=== PATIENT | male | born 1990 | race Caucasian/White ===

== ENCOUNTER 2017-05-23 11:22 | Inpatient (IN) | payer OTHER, MEDICAID ==
--- NOTE | 2017-05-23 11:26 | EDPHY ---
H & P - Personal History Tetanus Vaccine Date: Within the last seven years - Medical/Surgical History Hx Asthma: No Hx Chronic Respiratory Disease: No Hx Diabetes: No Hx Cardiac Disease: No Hx Renal Disease: No Hx Cirrhosis: No Hx Alcoholism: No Hx HIV/AIDS: No Hx Splenectomy or Spleen Trauma: No Other PMH: schizophrenia, bipolar - Social History Smoking Status: Current every day smoker Time Seen by Provider: 05/23/17 11:26 Constitutional: Initial Vital Signs Temperature (C) 36.8 C 05/23/17 11:25 Heart Rate 41 L 05/23/17 11:25 Respiratory Rate 16 05/23/17 11:25 Blood Pressure 119/69 05/23/17 11:25 O2 Sat (%) 96 05/23/17 11:25 O2 Delivery Mode Room Air Allergies/Adverse Reactions: No Known Allergies Allergy (Verified 05/23/17 12:12) Home Medications: Medication Instructions Recorded NK [No Known Home Meds] 05/23/17 Medical Decision Making ED Course/Re-evaluation: CHIEF COMPLAINT: Psychiatric evaluation HISTORY OF PRESENT ILLNESS: 27-year-old male who was brought in by the floor supervisor' s department. According to the police he has been completely cooperative. He was picked up at his house. He apparently has a court order but it is unclear the nature of that. His roommates have been calling his parents in [place]. His parents are on the way here. According to the patient there is absolutely nothing wrong with him. He denies using any drugs. He is trying to stop smoking cigarettes. He does use alcohol. He has been reading and writing and feels fine. He apparently has a diagnosis of schizoaffective disorder. A court order was obtained via his roommates and parents to bring him here to [facility] to get a psychiatric evaluation. Patient at this point is denying all psychiatric illness. REVIEW OF SYSTEMS: A 10 point review of systems was performed and is negative with the exception of the elements mentioned in the history of present illness. PHYSICAL EXAM: General Appearance: Alert, well hydrated, appropriate, and non-toxic appearing. Head: Atraumatic without scalp tenderness or obvious injury Eyes: Pupils equal, round, reactive to light and accommodation, EOMI, no trauma , no injection. Ears: Clear bilaterally, no perforation, normal landmarks Nose: Atraumatic, no rhinorrhea, clear. Throat: There is no erythema or exudates, no lesions, normal tonsils, mucus membranes moist. Neck: Supple, 2+ carotid upstroke, nontender, no lymphadenopathy. Respiratory: No retractions, no distress, no wheezes, and no accessory muscle use. Lungs are clear to auscultation bilaterally. Cardiovascular: Regular rate and rhythm, no murmurs, rubs, or gallops. Bilateral carotid, radial, dorsalis pedis, and posterior tibial pulses intact. Good capillary refill all extremities. Gastrointestinal: Abdomen is soft, nontender, non-distended, no masses, no rebound, no guarding, no peritoneal signs. Musculoskeletal: Normal active ROM of all extremities, atraumatic. Neurological: Alert, appropriate, and interactive. The patient has normal DTRs and non-focal cranial nerves, motor, sensory, and cerebellar exam. Skin: No rashes, good turgor, no nodules on palpation. Past medical history: Schizoaffective Past surgical history: Noncontributory Family history: Noncontributory Social history: Single, unemployed, lives with roommates, uses tobacco, denies alcohol or drugs DIFFERENTIAL DIAGNOSIS: The differential diagnosis for the patient's depression included but was not limited to functional and major depression, situational depression, medication side effect, drugs, and alcohol abuse. MEDICAL DECISION MAKING: Patient is in no acute distress and is hemodynamically stable. We are awaiting psychiatric team's evaluation. Patient has known history of psychiatric disorders and is here for evaluation. (Osmani Carlson) The patient has been accepted at [address] [place] [address] Wor[address]. Transfer paperwork completed. (Dayron Dumas) - Data Points Laboratory Results: Laboratory Results 05/23/17 11:40 05/23/17 11:40 05/23/17 05/23/17 05/23/17 11:40 11:40 11:40 WBC 8.29 10^3/uL 10^3/uL (3.80-9.50) RBC 4.70 10^6/uL 10^6/uL (4.40-6.38) Hgb 14.7 g/dL g/dL (13.7-17.5) Hct 43.9 % % (40.0-51.0) MCV 93.4 fL fL (81.5-99.8) MCH 31.3 pg pg (27.9-34.1) MCHC 33.5 g/dL g/dL (32.4-36.7) RDW 12.4 % % (11.5-15.2) Plt Count 260 10^3/uL 10^3/uL (150-400) MPV 10.4 fL fL (8.7-11.7) Neut % (Auto) 70.8 % % (39.3-74.2) Lymph % (Auto) 21.4 % % (15.0-45.0) [place] % (Auto) 6.2 % % (4.5-13.0) Eos % (Auto) 0.6 % % (0.6-7.6) Baso % (Auto) 0.6 % % (0.3-1.7) Nucleat RBC Rel Count 0.0 % % (0.0-0.2) Absolute Neuts (auto) 5.88 10^3/uL 10^3/uL (1.70-6.50) Absolute Lymphs (auto) 1.77 10^3/uL 10^3/uL (1.00-3.00) Absolute Monos (auto) 0.51 10^3/uL 10^3/uL (0.30-0.80) Absolute Eos (auto) 0.05 10^3/uL 10^3/uL (0.03-0.40) Absolute Basos (auto) 0.05 10^3/uL 10^3/uL (0.02-0.10) Absolute Nucleated RBC 0.00 10^3/uL 10^3/uL (0-0.01) Immature Gran % 0.4 % % (0.0-1.1) Immature Gran # 0.03 10^3/uL 10^3/uL (0.00-0.10) Sodium 140 mEq/L mEq/L (135-145) Potassium 4.5 mEq/L mEq/L (3.5-5.2) Chloride 107 mEq/L mEq/L (97-110) Carbon Dioxide 18 mEq/l L mEq/l (22-31) Anion Gap 15 mEq/L mEq/L (8-16) BUN 15 mg/dL mg/dL (7-23) Creatinine 0.9 mg/dL mg/dL (0.7-1.3) Estimated GFR > 60 Glucose 92 mg/dL mg/dL (70-100) Calcium 10.1 mg/dL mg/dL (8.5-10.4) Urine Opiates Screen NEGATIVE (NEGATIVE) Urine Barbiturates NEGATIVE (NEGATIVE) Ur Phencyclidine Scrn NEGATIVE (NEGATIVE) Ur Amphetamine Screen NEGATIVE (NEGATIVE) U Benzodiazepines Scrn NEGATIVE (NEGATIVE) Urine Cocaine Screen NEGATIVE (NEGATIVE) U Marijuana (THC) Screen NON-NEGATIVE H (NEGATIVE) Ethyl Alcohol < 10 mg/dL mg/dL (0-10) Departure - Departure Disposition: [facility] IP Clinical Impression: Schizophrenia Condition: Fair
[2017-05-23 12:29] LABS: PLATELET COUNT 260 10^3/uL (150-400)
[2017-05-23] MEDS ORDERED: NICOTINE POLACRILEX 2 MG GUM B PRN (23:28)
[2017-05-23] MEDS ORDERED: MAGNESIUM HYDROXIDE 30 ML UDCUP PO PRN (23:28)
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
--- NOTE | 2017-05-24 18:04 | BCON ---
[f rep st] BEHAVIORAL HEALTH CONSULTATION INTERNAL MEDICINE CONSULTATION DATE OF CONSULTATION: 05/24/2017 REFERRING PHYSICIAN: Margarito Worrell MD REASON FOR REFERRAL: Medical clearance for inpatient behavioral health stay. HISTORY OF PRESENT ILLNESS: This patient was brought to the emergency department on a court-ordered stay due to erratic behavior at home, where he lives with roommates. He reports that there is nothing wrong with him and he has no complaints. PAST MEDICAL HISTORY: 1. Bipolar disorder versus schizophrenia versus schizoaffective disorder. 2. History of concussions. PAST SURGICAL HISTORY: He has not had any surgeries. MEDICATIONS: He was taking no medications. ALLERGIES: There are no known drug allergies. REVIEW OF SYSTEMS: He denies pain, chest pain, palpitations, dyspnea, cough, nausea, vomiting, constipation, diarrhea. Otherwise, a 10-point review of systems is negative. PHYSICAL EXAM: VITAL SIGNS: Blood pressure is 118/58, heart rate is 40, respiratory rate is 14, oxygen saturation is 96% on room air. Temperature is 36.5 degrees centigrade. His weight is 74.8 kg for a body mass index of 23.7. GENERAL: This is a well-nourished, well-developed, and well-groomed man, cooperative and in no acute distress. HEENT: Extraocular movements are intact. Pupils are equal, round, and reactive to light. Mucous membranes are moist. Dentition is in good condition. He has an uncrowded airway, Mallampati class 1. NECK: Supple. HEART: There is a regular rate and rhythm. He is bradycardic. There are no murmurs, rubs, or gallops. LUNGS: Clear to auscultation bilaterally. ABDOMEN: Benign. EXTREMITIES: There is no cyanosis , clubbing, or edema. NEUROLOGIC: He is alert and oriented x3. Cranial nerves 2-12 are grossly intact. There is no focal weakness. Sensation is intact to light touch. Gait is within normal limits. LABORATORY STUDIES: Drawn in the emergency department, CBC was entirely within normal limits. Serum chemistry showed a slightly low carbon dioxide at 18, otherwise, renal function and electrolytes were normal. Toxicology screen in the serum was negative for ethyl alcohol. Urine was non-negative for marijuana but otherwise negative for substances of abuse. ASSESSMENT/RECOMMENDATIONS: 1. Mental health issues, pending further evaluation and management per Psychiatry and the mental health team. 2. Bradycardia of unknown etiology. I will add on a TSH. Upon chart review, bradycardia was present in 2012 when an EKG was done which showed sinus bradycardia and no abnormalities. There was also an echocardiogram done which also was read as normal but for slight tricuspid regurgitation. Given that this has been longstanding and he is asymptomatic at present, there is no further evaluation indicated. I see no medical contraindications to this patient's continued stay on the inpatient behavioral health unit or to any psychiatric medications or procedures. Thank you very much for including me in the care of this patient. Please do not hesitate to contact me or the hospitalist service should there be need for further medical evaluation. /[id number]/MODL MTDD
[2017-05-24] MEDS: OLANZapine DISINTEGR 10 MG TAB PO SCH (23:02)
--- NOTE | 2017-05-25 13:44 | SOAPPROG ---
SOAP Progress Note Assessment/Plan: Assessment: Plan: Subjective: Pt seen, discussed with staff. He voluntarily met with me today to discuss my impression and recommendations. I emphasized to him that I believe he is suffering from Schizoaffective D/o and requires medication treatment. He states he will not accept medication "because that is the last option, not the first." Talks about "natural remedies" and states, "I don't want you messing with my biochemistry." I explained that I believed his biochemistry needs to be adjusted through the use of medications to allow him to return to his normal level of functioning. I offered my observation that he has declined in every area of functioning since stopping his meds. He has alienated all of his supports, placing people in fear of harm, has lost virtually all of his belongings, is unemployed, is homeless, and has repeatedly demonstrated that he cannot care for his basic needs such as eating. He refutes this completely stating, "You are just very old and cannot understand this generation. You only see things in a box." Objective: Vital Signs Temp Pulse Resp BP Pulse Ox 36.6 C 47 L 15 93/51 L 95 05/25/17 06:00 05/25/17 06:00 05/25/17 06:00 05/25/17 06:00 05/25/17 06:00 MSE: Moderately anxious, cooperative. He actively attempts to reason with me, offering numerous alternative points of view re: his illness. He struggles to remain linear, derailing at times, but is able to bring himself back to topic. He continues to demonstrate paranoid thinking, believing his friends and parents are acting against him and lying on their affidavits to the court. He denies ever hearing any voices. He refuses to accept the existence of mental illness in himself and demonstrates an absence of insight in this area. His judgement remains severely impaired. - Time Spent With Patient Time Spent With Patient: 25" ICD10 Worksheet Patient Problems: Problems Problem Status Onset Schizophrenia Acute
--- NOTE | 2017-05-25 18:45 | SOAPPROG ---
SOAP Progress Note Assessment/Plan: Assessment: Mildly suppressed TSH. Presentation not otherwise consistent with thyrotoxicosis. Advise follow-up TSH in 4-6 weeks. 05/25/17 18:44 Subjective: Labs reviewed. Objective: Vital Signs Temp Pulse Resp BP Pulse Ox 36.6 C 47 L 15 93/51 L 95 05/25/17 06:00 05/25/17 06:00 05/25/17 06:00 05/25/17 06:00 05/25/17 06:00 ICD10 Worksheet Patient Problems: Problems Problem Status Onset Schizophrenia Acute
[2017-05-25] MEDS: OLANZapine DISINTEGR 10 MG TAB PO SCH (20:17)
--- NOTE | 2017-05-26 16:43 | SOAPPROG ---
SOAP Progress Note Assessment/Plan: Assessment: Per Dr. Worrell's note: Pt seen, discussed with staff. He voluntarily met with me today to discuss my impression and recommendations. I emphasized to him that I believe he is suffering from Schizoaffective D/o and requires medication treatment. He states he will not accept medication "because that is the last option, not the first." Talks about "natural remedies" and states, "I don't want you messing with my biochemistry." I explained that I believed his biochemistry needs to be adjusted through the use of medications to allow him to return to his normal level of functioning. I offered my observation that he has declined in every area of functioning since stopping his meds. He has alienated all of his supports, placing people in fear of harm, has lost virtually all of his belongings, is unemployed, is homeless, and has repeatedly demonstrated that he cannot care for his basic needs such as eating. He refutes this completely stating, "You are just very old and cannot understand this generation. You only see things in a box." Plan: 05/26/17 16:39 1. CCM - patient still refusing to take any psych meds, doesn't believe he "needs that stuff." 2. Patient extremely labile and disorganized today. Crying inconsolably around noon while sitting by himself in dining room. Seen laughing to himself and apparently responding to IS. 3. POC came for visit and requested to sit with patient in his room, but patient said he didn't want them to stay. Still paranoid that they are "telling lies" about him. 4. Placed on STC by Dr. Worrell. 5. A[address] court date for involuntary meds. 6. Placed on ISB precautions d/t sexually inappropriate comments he made to female staff. Subjective: Met with patient, reviewed chart and d/w staff. Patient has been pacing the halls, smiling inappropriately, mumbling to himself. He is also extremely labile , one minute crying loudly while sitting by himself in dining room, the next minute pacing halls laughing at nothing in particular and smiling when MD passes him. Patient said he had a list of questions to ask MD, but when MD asked to sit and talk, patient kept walking and said, "not now." Staff report patient slept 5-1/2 hours last night which is increase from previous night. Objective: Vital Signs Temp Pulse Resp BP Pulse Ox 36.3 C 58 L 14 107/68 97 05/26/17 00:30 05/26/17 00:30 05/26/17 00:30 05/26/17 00:30 05/26/17 00:30 MSE: Affect: Labile Mood: "Fine" TP: Disorganized, starts and stops conversation in mid-thought TC: Clear evidence of RIS Insight/Judgment: Impaired - Time Spent With Patient Time Spent With Patient: 15" - Pending Discharge Pending Discharge Within 24 Hours: No Pending Discharge Within 48 Hours: No ICD10 Worksheet Patient Problems: Problems Problem Status Onset Schizophrenia Acute
[2017-05-26] MEDS: OLANZapine DISINTEGR 10 MG TAB PO SCH (19:31)
--- NOTE | 2017-05-27 14:08 | SOAPPROG ---
SOAP Progress Note Assessment/Plan: Assessment: Plan: 05/27/17 14:08 Bipolar D/o: Remains very ill. Will continue to offer Zyprexa, though would be OK with either Risperdal or Invega if pt preferred. Await hearing for COM. Subjective: Pt seen, discussed with staff. Sitting in room with parents. States he "can't decide" if he wants to visit with me or not. I informed him that I had filed the STC and request for COM. He became tearful at that. He could not explain why. He then stated that "Invega and Risperdal are better." Stopped short of consenting to take one of the meds, however. I reviewed with him the criteria to have the STC released inc: improvement in his psychosis and ruddy to the extent that he demonstrates reasonable decision making. Objective: Vital Signs Temp Pulse Resp BP Pulse Ox 36.4 C 38 L 14 108/58 L 97 05/27/17 05:28 05/27/17 05:28 05/27/17 05:28 05/27/17 05:28 05/27/17 05:28 MSE: Anxious appearing with constricted, anxious and tearful affect, constricted body posture. TP is disorganized, unable to make simple decisions or give goal-directed answers to questions. - Time Spent With Patient Time Spent With Patient: 25" ICD10 Worksheet Patient Problems: Problems Problem Status Onset Schizophrenia Acute
[2017-05-27] MEDS: OLANZapine DISINTEGR 10 MG TAB PO SCH (21:00)
--- NOTE | 2017-05-28 13:17 | SOAPPROG ---
SOAP Progress Note Assessment/Plan: Assessment: Per Dr. Worrell's note: Pt seen, discussed with staff. He voluntarily met with me today to discuss my impression and recommendations. I emphasized to him that I believe he is suffering from Schizoaffective D/o and requires medication treatment. He states he will not accept medication "because that is the last option, not the first." Talks about "natural remedies" and states, "I don't want you messing with my biochemistry." I explained that I believed his biochemistry needs to be adjusted through the use of medications to allow him to return to his normal level of functioning. I offered my observation that he has declined in every area of functioning since stopping his meds. He has alienated all of his supports, placing people in fear of harm, has lost virtually all of his belongings, is unemployed, is homeless, and has repeatedly demonstrated that he cannot care for his basic needs such as eating. He refutes this completely stating, "You are just very old and cannot understand this generation. You only see things in a box." Plan: 05/26/17 16:39 1. CCM - patient still refusing to take any psych meds, doesn't believe he "needs that stuff." 2. Patient extremely labile and disorganized today. Crying inconsolably around noon while sitting by himself in dining room. Seen laughing to himself and apparently responding to IS. 3. POC came for visit and requested to sit with patient in his room, but patient said he didn't want them to stay. Still paranoid that they are "telling lies" about him. 4. Placed on STC by Dr. Worrell. 5. A[address] date for involuntary meds. 6. Placed on ISB precautions d/t sexually inappropriate comments he made to female staff. 05/28/17 13:14 1. CCM - patient presents more disorganized and labile than earlier in week, however, refuses to take any psych meds 2. STC 3. A[address] hearing for involuntary meds Subjective: Met with patient, reviewed chart and d/w staff. Patient presents very disorganized and labile. He was overheard by staff crying loudly in his room, and then a brief time later was dancing in the hallway. When tried to talk to patient he kept walking away and mumbling under his breath. Later he came up to MD and showed him his [facility] paperwork and his dental resident's card, and asked MD "do you want to see this." MD asked if patient would sit down and talk, but he turned away quickly and began walking in the other direction, saying,"I'm going away." Patient slept 7 hours. Objective: Vital Signs Temp Pulse Resp BP Pulse Ox 36.4 C 53 L 16 88/52 L 97 05/28/17 06:00 05/28/17 06:00 05/28/17 06:00 05/28/17 06:00 05/28/17 06:00 MSE: Affect: Elevated, labile Mood: No response TP: Disorganized, illogical TC : Appears to respond to internal/external stim, laughing inappropriately, seems paranoid to try meds Insight/Judgment: Impaired - Time Spent With Patient Time Spent With Patient: 15" - Pending Discharge Pending Discharge Within 24 Hours: No Pending Discharge Within 48 Hours: No ICD10 Worksheet Patient Problems: Problems Problem Status Onset Schizophrenia Acute
[2017-05-28] MEDS: OLANZapine DISINTEGR 10 MG TAB PO SCH (19:07)
--- NOTE | 2017-05-29 15:18 | SOAPPROG ---
SOAP Progress Note Assessment/Plan: Assessment: Per Dr. Worrell's note: Pt seen, discussed with staff. He voluntarily met with me today to discuss my impression and recommendations. I emphasized to him that I believe he is suffering from Schizoaffective D/o and requires medication treatment. He states he will not accept medication "because that is the last option, not the first." Talks about "natural remedies" and states, "I don't want you messing with my biochemistry." I explained that I believed his biochemistry needs to be adjusted through the use of medications to allow him to return to his normal level of functioning. I offered my observation that he has declined in every area of functioning since stopping his meds. He has alienated all of his supports, placing people in fear of harm, has lost virtually all of his belongings, is unemployed, is homeless, and has repeatedly demonstrated that he cannot care for his basic needs such as eating. He refutes this completely stating, "You are just very old and cannot understand this generation. You only see things in a box." Plan: 05/26/17 16:39 1. CCM - patient still refusing to take any psych meds, doesn't believe he "needs that stuff." 2. Patient extremely labile and disorganized today. Crying inconsolably around noon while sitting by himself in dining room. Seen laughing to himself and apparently responding to IS. 3. POC came for visit and requested to sit with patient in his room, but patient said he didn't want them to stay. Still paranoid that they are "telling lies" about him. 4. Placed on STC by Dr. Worrell. 5. A[address] court date for involuntary meds. 6. Placed on ISB precautions d/t sexually inappropriate comments he made to female staff. 05/28/17 13:14 1. CCM - patient presents more disorganized and labile than earlier in week, however, refuses to take any psych meds 2. STC 3. [address] hearing for involuntary meds 05/29/17 15:14 1. Patient took Zyprexa 10mg HS last night for first time. Will increase to 15mg HS tonight. 2. Patient slept 11 hours. 3. Patient attended goals group this AM for first time. 4. STC - awaiting court hearing Subjective: Met with patient, reviewed chart and d/w staff. Patient was visiting in his room with his parents. He agreed to take Zyprexa last night at bedtime, and MD encouraged him to continue with med again tonight, but patient was ambivalent. Objective: Vital Signs Temp Pulse Resp BP Pulse Ox 36.3 C 39 L 14 88/49 L 96 05/29/17 06:00 05/29/17 06:00 05/29/17 06:00 05/29/17 06:00 05/29/17 06:00 MSE: Affect: Labile Mood: "Fine" TP: Disorganized TC: Paranoid, delusions, appear to respond to IS Insight/Judgment: Impaired - Time Spent With Patient Time Spent With Patient: 15" - Pending Discharge Pending Discharge Within 24 Hours: No Pending Discharge Within 48 Hours: No ICD10 Worksheet Patient Problems: Problems Problem Status Onset Schizophrenia Acute
[2017-05-29] MEDS: OLANZapine DISINTEGR 5 MG TAB PO SCH (21:20)
[2017-05-30] MEDS: OLANZapine DISINTEGR 5 MG TAB PO SCH (19:50)
--- NOTE | 2017-05-30 20:48 | SOAPPROG ---
SOAP Progress Note Assessment/Plan: Assessment: Plan: 05/27/17 14:08 Bipolar D/o: Remains very ill. Will continue to offer Zyprexa, though would be OK with either Risperdal or Invega if pt preferred. Await hearing for COM. 05/30/17 20:47 Bipolar D/o: Worsened disorganization. Hope to see continued med compliance, but he clearly cannot give informed consent for ongoing tx. Hearing will be Thurs or Fri. CCM. Subjective: Pt seen, discussed with staff and Dr. Ohara, chart reviewed. He remains disorganized, unable to reasonably discuss his treatment plan with me today. He took Zyprexa last night at staff recommendation due to level of disorganization. Unable to state whether this was helpful subjectively. Staff notes objective improvement in calming. No SE's noted. Objective: Vital Signs Temp Pulse Resp BP Pulse Ox 35 C L 35 L 12 103/50 L 96 05/30/17 06:00 05/30/17 06:00 05/30/17 06:00 05/30/17 06:00 05/30/17 06:00 MSE: Moderate level of generalized psychomotor agitation. Unable to sit for interview, pacing. Unable to attend to conversation or groups. Affect is inappropriately elevated, smiling. Mood is "bad." TP disorganized. TC reveals possible attention to IS. - Time Spent With Patient Time Spent With Patient: 15" ICD10 Worksheet Patient Problems: Problems Problem Status Onset Schizophrenia Acute
--- NOTE | 2017-05-31 11:45 | SOAPPROG ---
SOAP Progress Note Assessment/Plan: Assessment: Plan: 05/27/17 14:08 Bipolar D/o: Remains very ill. Will continue to offer Zyprexa, though would be OK with either Risperdal or Invega if pt preferred. Await hearing for COM. 05/30/17 20:47 Bipolar D/o: Worsened disorganization. Hope to see continued med compliance, but he clearly cannot give informed consent for ongoing tx. Hearing will be Th or Fri. CCM. 05/31/17 11:46 Bipolar D/o: Improved with Zyprexa. CCM. Will discontinue court process if patient regains decisional capacity and agrees to voluntary treatment. Subjective: Pt seen, discussed with staff. Up in the day room this morning reading a book and taking notes. He is more interactive, able to discuss treatment. He has taken Zyprexa for the past three nights and states he believes it is helping. He states, "I shouldn't have stopped my meds and started smoking pot." He states he is agreeable to continuing to take the Zyprexa on a voluntary basis. I informed him of the court date for COM on 06/06/17. He is unable to completely understand that if he is willing to take the meds voluntarily, we can cancel the court process. He states, "The court thing is just to try to force the issue. I can't do anything about that." I told him we would revisit the issue later in the week. Objective: Vital Signs Temp Pulse Resp BP Pulse Ox 36.6 C 57 L 14 112/52 L 95 05/31/17 06:00 05/31/17 06:00 05/31/17 06:00 05/31/17 06:00 05/31/17 06:00 MSE: Calm, coop. Affect is blunted, stable. Mood is "better." TP is more linear with some blocking and derailment. TC reveals continued paranoia, stating, "I'm worried everyone wants to kick me out of the state." He continues to seem to respond to internal stimuli. - Time Spent With Patient Time Spent With Patient: 25" ICD10 Worksheet Patient Problems: Problems Problem Status Onset Schizophrenia Acute
[2017-05-31] MEDS: OLANZapine DISINTEGR 5 MG TAB PO SCH (21:06)
[2017-06-01] MEDS: NICOTINE 7 MG/24 HR PATCH TD SCH (13:15)
--- NOTE | 2017-06-01 15:28 | SOAPPROG ---
SOAP Progress Note Assessment/Plan: Assessment: Plan: 05/27/17 14:08 Bipolar D/o: Remains very ill. Will continue to offer Zyprexa, though would be OK with either Risperdal or Invega if pt preferred. Await hearing for COM. 05/30/17 20:47 Bipolar D/o: Worsened disorganization. Hope to see continued med compliance, but he clearly cannot give informed consent for ongoing tx. Hearing will be Thurs or Fri. CCM. 05/31/17 11:46 Bipolar D/o: Improved with Zyprexa. CCM. Will discontinue court process if patient regains decisional capacity and agrees to voluntary treatment. 06/01/17 15:27 Bipolar D/o? Some improvement with Zyprexa. I favor a diagosis of Schizoaffective D/o at this point. Will CCM. Subjective: Pt seen, discussed with staff. Up and around the unit, cooperative and interactive, though remains disorganized. Stipulated to meds and remains compliant with Zyprexa. Notes no side effects. Continues to describe himself as "paranoid" believing people are "out to get me." Slept better last night. Objective: Vital Signs Temp Pulse Resp BP Pulse Ox 36.6 C 42 L 14 116/68 99 05/31/17 06:00 06/01/17 06:00 06/01/17 06:00 06/01/17 06:00 06/01/17 06:00 MSE: Moderately agitated, unable to sit still, mainly due to distraction. Appears internally preoccupied. Significant delay in answering most questions and often smiles or laughs inappropriately. Affect is slightly elevated, incongruent. Mood is "pretty bad." TP disorganized. TC reveals paranoia, likely AH's, with attention to internal stimuli. - Time Spent With Patient Time Spent With Patient: 15" ICD10 Worksheet Patient Problems: Problems Problem Status Onset Schizophrenia Acute
[2017-06-01] MEDS: OLANZapine DISINTEGR 5 MG TAB PO SCH (21:15)
[2017-06-02] MEDS: NICOTINE 7 MG/24 HR PATCH TD SCH (11:04)
--- NOTE | 2017-06-02 14:24 | SOAPPROG ---
SOAP Progress Note Assessment/Plan: Assessment: Plan: 05/27/17 14:08 Bipolar D/o: Remains very ill. Will continue to offer Zyprexa, though would be OK with either Risperdal or Invega if pt preferred. Await hearing for COM. 05/30/17 20:47 Bipolar D/o: Worsened disorganization. Hope to see continued med compliance, but he clearly cannot give informed consent for ongoing tx. Hearing will be Th or Tue. CCM. 05/31/17 11:46 Bipolar D/o: Improved with Zyprexa. CCM. Will discontinue court process if patient regains decisional capacity and agrees to voluntary treatment. 06/01/17 15:27 Bipolar D/o? Some improvement with Zyprexa. I favor a diagosis of Schizoaffective D/o at this point. Will CCM. 06/02/17 14:26 Schizoaffective D/o: More obviously symptomatic today. Day #4 of Zyprexa. Will CCM. Will not titrate dose at this time due to his already rapid increase to 15mg. This would be unlikely to hasten any response and would be likely to cause side effects leading to non-compliance. Will cancel court hearing in re: COM to preserve therapeutic alliance. Subjective: Pt seen, discussed with staff. I also spoke with patient's parents yesterday afternoon after he signed an GLORIA. They voice their ongoing concern re: his general incapacity and requested information on guardianship. I referred them to Kylah Sheikh as a resource. Pt is conversant with me today, though disorganized. Struggles to attend to or comprehend conversation. I told him he was improving and is doing everything he need to (primarily med compliance) to get better. He looked confused by this and said, "I'm just waiting her to . " He had a loud argument with his parents last evening and when I asked what that was about, but hesitated for a long time and then said, "I think my dad gets jealous when I talk to my mom." Remains compliant with Zyprexa. Offers no c/o's. Notes no SE's. Objective: Vital Signs Temp Pulse Resp BP Pulse Ox 36.4 C 65 20 106/57 L 90 L 06/02/17 06:00 06/02/17 06:00 06/02/17 06:00 06/02/17 06:00 06/02/17 06:00 MSE: Moderately anxious, guarded. Scans room frequently. Appears to attend to internal stimuli and makes complex gestures with his hands and fingers while mouthing words. He is unable or unwilling to tell me the significance of this. He makes intermittent eye contact. His affect is blunted. His mood is "bad. " TP is disorganized with frequent blocking and derailment. Does not answer questions re: hallucinations. - Time Spent With Patient Time Spent With Patient: 25" ICD10 Worksheet Patient Problems: Problems Problem Status Onset Schizophrenia Acute
[2017-06-02] MEDS: OLANZapine DISINTEGR 5 MG TAB PO SCH (20:31)
[2017-06-03] MEDS: NICOTINE 7 MG/24 HR PATCH TD SCH (10:29)
--- NOTE | 2017-06-03 13:18 | SOAPPROG ---
[facility] Progress Note Assessment/Plan: Assessment: Plan: 05/27/17 14:08 Bipolar D/o: Remains very ill. Will continue to offer Zyprexa, though would be OK with either Risperdal or Invega if pt preferred. Await hearing for COM. 05/30/17 20:47 Bipolar D/o: Worsened disorganization. Hope to see continued med compliance, but he clearly cannot give informed consent for ongoing tx. Hearing will be Th or Fri. CCM. 05/31/17 11:46 Bipolar D/o: Improved with Zyprexa. CCM. Will discontinue court process if patient regains decisional capacity and agrees to voluntary treatment. 06/01/17 15:27 Bipolar D/o? Some improvement with Zyprexa. I favor a diagosis of Schizoaffective D/o at this point. Will CCM. 06/02/17 14:26 Schizoaffective D/o: More obviously symptomatic today. Day #4 of Zyprexa. Will CCM. Will not titrate dose at this time due to his already rapid increase to 15mg. This would be unlikely to hasten any response and would be likely to cause side effects leading to non-compliance. Will cancel court hearing in re: COM to preserve therapeutic alliance. 06/03/17 13:18 Schizoaffective d/o: Remains quite ill. CCM. Subjective: Pt seen, discussed with staff. Reports feeling "pretty bad." Continues to try to socialize in milieu. Has limited success due to disorganization and internal preoccupation. States he is agreeable to ongoing treatment plan. Offers no c/o's. Compliant with meds. Objective: Vital Signs Temp Pulse Resp BP Pulse Ox 36.4 C 45 L 16 106/68 99 06/03/17 06:00 06/03/17 06:00 06/03/17 06:00 06/03/17 06:00 06/03/17 06:00 MSE: Adequately groomed, coop. Attention is poor due to distraction from IS. Affect is constricted with inappropriate laughter at times. Mood is "pretty bad." TP disorganized with continued blocking and derailment. TC reveals attention to IS indicating AH's. - Time Spent With Patient Time Spent With Patient: 15" ICD10 Worksheet Patient Problems: Problems Problem Status Onset Schizophrenia Acute
[2017-06-03] MEDS: OLANZapine DISINTEGR 5 MG TAB PO SCH (20:07)
[2017-06-04] MEDS: NICOTINE 7 MG/24 HR PATCH TD SCH ×2 (08:48→08:58)
--- NOTE | 2017-06-04 11:46 | SOAPPROG ---
SOAP Progress Note Assessment/Plan: Assessment: 27yo CM with severe SZA d/o bipolar type, and THC use, on STC with c.o. meds pending 06/04/17 15:20 per staff, slept 5.5hr. staff noting pt still possibly responding to internal stim at times, more isolative, and seeming overall more agitated about length of time in hospital. exercises using bike in dayroom. does not want to take any medication but compliant. mother is a pranic healer. Pt very difficult to engage in interview. Denied any med s/e or medical complaints. Remained sitting at desk without eye contact, was writing in journal. "I'm trying to make a shaky train of thought poem...I like my dexterity." When asked what brought him to hospital, pt responded "that I'm in good hands". "I'm worn out" (regarding his length of stay here). "I'm falling into the 'take care of me vehicle' to let you do what you want, or my evacuate plan for getting out of town..." Admits he'd like to leave town, not sure where, "a couple of places" he'd go. No eye contact throughout interview. nml rate/vol speech. mood "worn out", affect blunted, denied any AH/VH or any SI when asked. gave brief responses to questions, vague, and with any elaboration his responses seemed more disorganized. guarded. pt seemed glad to end interview. i/j both seem poor Plan: continue zyprexa 15mg hs. due to very poor insight and his hx of n/c, likely will be n/c with any meds after d/c unless on long-acting IM. pt continues on STC, c.o. med pending cont on ISB prec Objective: Vital Signs Temp Pulse Resp BP Pulse Ox 36.3 C 38 L 12 108/59 L 97 06/04/17 04:17 06/04/17 04:17 06/04/17 04:17 06/04/17 04:17 06/04/17 04:17 - Time Spent With Patient Time Spent With Patient: 15min - Pending Discharge Pending Discharge Within 24 Hours: No Pending Discharge Within 48 Hours: No ICD10 Worksheet Patient Problems: Problems Problem Status Onset Schizophrenia Acute
[2017-06-04] MEDS: OLANZapine DISINTEGR 5 MG TAB PO SCH (19:25)
[2017-06-05] MEDS: ACETAMINOPHEN 325 MG TAB PO PRN (01:48)
[2017-06-05] MEDS: NICOTINE 7 MG/24 HR PATCH TD SCH (08:49)
[2017-06-05] MEDS: OLANZapine DISINTEGR 5 MG TAB PO SCH (19:12)
[2017-06-05] MEDS: OLANZapine DISINTEGR 10 MG TAB PO SCH (20:16)
--- NOTE | 2017-06-05 21:38 | SOAPPROG ---
SOAP Progress Note Assessment/Plan: Assessment: 27yo CM with severe SZA d/o bipolar type, and THC use, on ST with c.o. meds pending 06/04/17 15:20 per staff, slept 5.5hr. staff noting pt still possibly responding to internal stim at times, more isolative, and seeming overall more agitated about length of time in hospital. exercises using bike in dayroom. does not want to take any medication but compliant. mother is a pranic healer. Pt very difficult to engage in interview. Denied any med s/e or medical complaints. Remained sitting at desk without eye contact, was writing in journal. "I'm trying to make a shaky train of thought poem...I like my dexterity." When asked what brought him to hospital, pt responded "that I'm in good hands". "I'm worn out" (regarding his length of stay here). "I'm falling into the 'take care of me vehicle' to let you do what you want, or my evacuate plan for getting out of town..." Admits he'd like to leave town, not sure where, "a couple of places" he'd go. No eye contact throughout interview. nml rate/vol speech. mood "worn out", affect blunted, denied any AH/VH or any SI when asked. gave brief responses to questions, vague, and with any elaboration his responses seemed more disorganized. guarded. pt seemed glad to end interview. i/j both seem poor Plan: continue zyprexa 15mg hs. due to very poor insight and his hx of n/c, likely will be n/c with any meds after d/c unless on long-acting IM. pt continues on [facility], c.o. med pending cont on [facility] prec 06/05/17 18:25 27yo w/SZA d/o bipolar type per staff, slept 8hr. not attending groups or attends then leaves just before it is his turn to participate. staff report that patient stated he has been bothered by the psychosis on the unit, the people with psychosis, as he sees himself in the future, and talked of the "system" having difficulty reintegrating people with MH illness into the community. On interview, pt sitting alone on desk in darkened room making tapping sounds or rhythms with hands. Did engage in interview today. Was talkative, rambling, and train of thought somewhat difficult to follow. When asked about his leaving groups, he stated "I have nothing in common with those invalids", talked of how he becomes "filled with self-righteousness", then talked of being "sick of it here...I've lost the will to practice excruciating self-restraint..." Denied any SI, and denied AH/ VH. mood "sick of being here", affect frustrated but controlled. Allowed to vent his frustrations with hospitalization, his mother being payee, being on a certification, having gradually tapered himself off meds over 6 months and then making the "mistake" of informing his mother he was off meds ( to which he attributes current admission, his mother interfering). Reporting medication s/e to Zyprexa of : rashes on face, feeling hot, restless, huge appetite, numbness and tingling in my joints, muscles not responding, drowsy, needing more coffee, exercising less, and worried about his kidneys... Then ultimately admitted believing he does have a mental illness, and continues to experience "ideas of reference...from the radio" but that this feels comforting and a part of him. Wondered if he could still smoke THC on psych meds , b/c he doesn't get as paranoid on THC as he used to. Discussed effects of substances on mental illness sxs and advised against. Discussed med options. Agreed to try increase in Zyprexa to 20mg tonight and further discuss with Dr. Worrell in AM. PLAN: incr zyprexa to 20mg hs. Objective: Vital Signs Temp Pulse Resp BP Pulse Ox 36.3 C 39 L 14 114/62 99 06/05/17 05:17 06/05/17 05:17 06/05/17 05:17 06/05/17 05:17 06/05/17 05:17 - Time Spent With Patient Time Spent With Patient: 30min - Pending Discharge Pending Discharge Within 24 Hours: No Pending Discharge Within 48 Hours: No ICD10 Worksheet Patient Problems: Problems Problem Status Onset Schizophrenia Acute
[2017-06-05] MEDS: LORazepam 0.5 MG TAB PO PRN (22:56)
[2017-06-06] MEDS: NICOTINE 7 MG/24 HR PATCH TD SCH (10:19)
--- NOTE | 2017-06-06 14:18 | SOAPPROG ---
SOAP Progress Note Assessment/Plan: Assessment: Plan: 05/27/17 14:08 Bipolar D/o: Remains very ill. Will continue to offer Zyprexa, though would be OK with either Risperdal or Invega if pt preferred. Await hearing for COM. 05/30/17 20:47 Bipolar D/o: Worsened disorganization. Hope to see continued med compliance, but he clearly cannot give informed consent for ongoing tx. Hearing will be Th or Tue. [facility]. 05/31/17 11:46 Bipolar D/o: Improved with Zyprexa. [facility]. Will discontinue court process if patient regains decisional capacity and agrees to voluntary treatment. 06/01/17 15:27 Bipolar D/o? Some improvement with Zyprexa. I favor a diagosis of Schizoaffective D/o at this point. Will CCM. 06/02/17 14:26 Schizoaffective D/o: More obviously symptomatic today. Day #4 of Zyprexa. Will [facility]. Will not titrate dose at this time due to his already rapid increase to 15mg. This would be unlikely to hasten any response and would be likely to cause side effects leading to non-compliance. Will cancel court hearing in re: COM to preserve therapeutic alliance. 06/03/17 13:18 Schizoaffective d/o: Remains quite ill. [facility]. 06/06/17 14:17 Schizoaffective D/o: Minimal improvement. Will continue Zyprexa. He is at a therapeutic dose and needs time to fully respond. Only day #8. The presence of cannabis is a negative factor in his response. Subjective: Pt seen, discussed with staff, chart reviewed. Case reviewed with Dr. Tesfaye. Zyprexa increased to 20mg over the weekend. Tolerating this well. Remains compliant with meds. Offers no c/o's today. He continues to demonstrate a high level of psychomotor activity, vigorously pacing the hallways. States he is working out. Objective: Vital Signs Temp Pulse Resp BP Pulse Ox 36.3 C 48 L 14 116/72 96 06/05/17 05:17 06/06/17 06:00 06/06/17 06:00 06/06/17 06:00 06/06/17 06:00 MSE: Adequately groomed, coop. Affect is bright, smiling. Mood is "good." TP disorganized. TC reveals internal preoccupation with likely AH's. - Time Spent With Patient Time Spent With Patient: 15" ICD10 Worksheet Patient Problems: Problems Problem Status Onset Schizophrenia Acute
[2017-06-06] MEDS ORDERED: OLANZapine 10 MG/2 ML VIAL IM PRN (16:14)
[2017-06-06] MEDS: OLANZapine DISINTEGR 10 MG TAB PO SCH (21:10)
[2017-06-07] MEDS: NICOTINE 7 MG/24 HR PATCH TD SCH ×2 (07:30→14:48)
[2017-06-07] MEDS: LORazepam 0.5 MG TAB PO PRN (08:56)
--- NOTE | 2017-06-07 11:10 | SOAPPROG ---
SOAP Progress Note Assessment/Plan: Assessment: Plan: 05/27/17 14:08 Bipolar D/o: Remains very ill. Will continue to offer Zyprexa, though would be OK with either Risperdal or Invega if pt preferred. Await hearing for COM. 05/30/17 20:47 Bipolar D/o: Worsened disorganization. Hope to see continued med compliance, but he clearly cannot give informed consent for ongoing tx. Hearing will be Th or Tue. [facility]CM. 05/31/17 11:46 Bipolar D/o: Improved with Zyprexa. CCM. Will discontinue court process if patient regains decisional capacity and agrees to voluntary treatment. 06/01/17 15:27 Bipolar D/o? Some improvement with Zyprexa. I favor a diagosis of Schizoaffective D/o at this point. Will CCM. 06/02/17 14:26 Schizoaffective D/o: More obviously symptomatic today. Day #4 of Zyprexa. Will CCM. Will not titrate dose at this time due to his already rapid increase to 15mg. This would be unlikely to hasten any response and would be likely to cause side effects leading to non-compliance. Will cancel court hearing in re: COM to preserve therapeutic alliance. 06/03/17 13:18 Schizoaffective d/o: Remains quite ill. CCM. 06/06/17 14:17 Schizoaffective D/o: Minimal improvement. Will continue Zyprexa. He is at a therapeutic dose and needs time to fully respond. Only day #8. The presence of cannabis is a negative factor in his response. 06/07/17 11:13 Schizoaffective D/o: Improving. CCM with Zyprexa back to 15mg per pt request. Subjective: Pt seen, discussed with staff. Asks, "Why are you so aloof?" Goes on to state he believes it is because "you want to keep me here for 90 days. Your timeframe and mine are very different." We discussed again his treatment plan and likely course. I indicated to him that he is much better today in terms of organization than he has been in the past few days. Staff notes continued difficulty interacting with others or participating in groups. He will attend some groups, but leave when it is his turn to speak. He identified "using cocaine" as an effective way to calm himself in group yesterday. When redirected, he insisted that there was nothing wrong with this statement. He remains cooperative with staff direction and compliant with medications. He requests decrease in Zyprexa back to 15mg due to concern that "20 is too much." Objective: Vital Signs Temp Pulse Resp BP Pulse Ox 36.3 C 58 L 14 141/52 H 96 06/07/17 05:21 06/07/17 05:21 06/07/17 05:21 06/07/17 05:21 06/07/17 05:21 MSE: Moderately agitated, though able to interact better, attend to conversation. Speech is more fluent, less blocking or internal preoccupation. Affect is expansive, irritable at times. Mood is "better." TP linear for longer periods, though continues to derail. TC reveals continued paranoid thoughts. - Time Spent With Patient Time Spent With Patient: 25" ICD10 Worksheet Patient Problems: Problems Problem Status Onset Schizophrenia Acute
[2017-06-07] MEDS ORDERED: OLANZapine DISINTEGR 10 MG TAB PO SCH (11:30)
[2017-06-07] MEDS: OLANZapine DISINTEGR 10 MG TAB PO SCH (20:59)
[2017-06-07] MEDS: OLANZapine DISINTEGR 5 MG TAB PO SCH (21:00)
[2017-06-08] MEDS: NICOTINE 7 MG/24 HR PATCH TD SCH ×2 (08:13→08:51)
--- NOTE | 2017-06-08 15:11 | SOAPPROG ---
SOAP Progress Note Assessment/Plan: Assessment: Plan: 05/27/17 14:08 Bipolar D/o: Remains very ill. Will continue to offer Zyprexa, though would be OK with either Risperdal or Invega if pt preferred. Await hearing for COM. 05/30/17 20:47 Bipolar D/o: Worsened disorganization. Hope to see continued med compliance, but he clearly cannot give informed consent for ongoing tx. Hearing will be Th or Tue. CCM. 05/31/17 11:46 Bipolar D/o: Improved with Zyprexa. CCM. Will discontinue court process if patient regains decisional capacity and agrees to voluntary treatment. 06/01/17 15:27 Bipolar D/o? Some improvement with Zyprexa. I favor a diagosis of Schizoaffective D/o at this point. Will CCM. 06/02/17 14:26 Schizoaffective D/o: More obviously symptomatic today. Day #4 of Zyprexa. Will CCM. Will not titrate dose at this time due to his already rapid increase to 15mg. This would be unlikely to hasten any response and would be likely to cause side effects leading to non-compliance. Will cancel court hearing in re: COM to preserve therapeutic alliance. 06/03/17 13:18 Schizoaffective d/o: Remains quite ill. CCM. 06/06/17 14:17 Schizoaffective D/o: Minimal improvement. Will continue Zyprexa. He is at a therapeutic dose and needs time to fully respond. Only day #8. The presence of cannabis is a negative factor in his response. 06/07/17 11:13 Schizoaffective D/o: Improving. CCM with Zyprexa back to 15mg per pt request. 06/08/17 15:11 Schizoaffective D/o: SLow improvement. CCM. Subjective: Pt seen, discussed with staff. Reports feeling "out there." Remains aloof, though present in milieu. Moved down the mirza due to harassment by another patient. Required staff redirection due to rather dramatic behavior of doing yoga poses in the middle of morning goals group. He remains suspicious of my motivations, asking repeatedly why I want to keep him here for ninety days. I reassured him again that that is not our intent. He remains compliant with meds. Objective: Vital Signs Temp Pulse Resp BP Pulse Ox 36.6 C 77 16 125/72 H 98 06/08/17 06:00 06/08/17 06:00 06/08/17 06:00 06/08/17 06:00 06/08/17 06:00 - Time Spent With Patient Time Spent With Patient: 15" ICD10 Worksheet Patient Problems: Problems Problem Status Onset Schizophrenia Acute
[2017-06-08] MEDS: OLANZapine DISINTEGR 5 MG TAB PO SCH (20:30)
[2017-06-08] MEDS: OLANZapine DISINTEGR 10 MG TAB PO SCH (20:30)
[2017-06-09] MEDS: LORazepam 0.5 MG TAB PO PRN ×2 (00:15→14:04)
[2017-06-09] MEDS: NICOTINE 7 MG/24 HR PATCH TD SCH (08:38)
--- NOTE | 2017-06-09 14:56 | SOAPPROG ---
SOAP Progress Note Assessment/Plan: Assessment: Per Dr. Worrell's note: 05/27/17 14:08 Bipolar D/o: Remains very ill. Will continue to offer Zyprexa, though would be OK with either Risperdal or Invega if pt preferred. Await hearing for COM. 05/30/17 20:47 Bipolar D/o: Worsened disorganization. Hope to see continued med compliance, but he clearly cannot give informed consent for ongoing tx. Hearing will be Th or Tue. CCM. 05/31/17 11:46 Bipolar D/o: Improved with Zyprexa. CCM. Will discontinue court process if patient regains decisional capacity and agrees to voluntary treatment. 06/01/17 15:27 Bipolar D/o? Some improvement with Zyprexa. I favor a diagosis of Schizoaffective D/o at this point. Will CCM. 06/02/17 14:26 Schizoaffective D/o: More obviously symptomatic today. Day #4 of Zyprexa. Will CCM. Will not titrate dose at this time due to his already rapid increase to 15mg. This would be unlikely to hasten any response and would be likely to cause side effects leading to non-compliance. Will cancel court hearing in re: COM to preserve therapeutic alliance. 06/03/17 13:18 Schizoaffective d/o: Remains quite ill. CCM. 06/06/17 14:17 Schizoaffective D/o: Minimal improvement. Will continue Zyprexa. He is at a therapeutic dose and needs time to fully respond. Only day #8. The presence of cannabis is a negative factor in his response. 06/07/17 11:13 Schizoaffective D/o: Improving. CCM with Zyprexa back to 15mg per pt request. 06/08/17 15:11 Schizoaffective D/o: SLow improvement. CCM. Subjective: Pt seen, discussed with staff. Reports feeling "out there." Remains aloof, though present in milieu. Moved down the mirza due to harassment by another patient. Required staff redirection due to rather dramatic behavior of doing yoga poses in the middle of morning goals group. He remains suspicious of my motivations, asking repeatedly why I want to keep him here for ninety days. I reassured him again that that is not our intent. He remains compliant with meds. Plan: 06/09/17 14:52 1. Patient feels "more comfortable" in new room. Still feels slightly paranoid that other patients are targeting him. 2 CCM - compliant with meds 3. Stipulated to COM Subjective: Met with patient, reviewed chart and d/w staff. Patient says he doesn't "feel comfortable" around certain patients. He says that a female peer is sending him "sexual vibes" while in group and he "had to leave." MD reassures patient that he should take space away from peers when he feels uncomfortable, and he can always discuss with staff when necessary. He agrees with this plan. Later in day , patient is drumming on couch and making "rap" music with peer. He slept 6 hrs last night. Objective: Vital Signs Temp Pulse Resp BP Pulse Ox 36.6 C 44 L 16 114/57 L 97 06/09/17 01:44 06/09/17 01:44 06/09/17 01:44 06/09/17 01:44 06/09/17 01:44 MSE: Mood: "Good" Affect: Elevated TP: Disorganized, tangential TC: No SI/HI , some paranoia Insight/Judgment: Impaired - Time Spent With Patient Time Spent With Patient: 25" - Pending Discharge Pending Discharge Within 24 Hours: No Pending Discharge Within 48 Hours: No ICD10 Worksheet Patient Problems: Problems Problem Status Onset Schizophrenia Acute
[2017-06-09] MEDS: OLANZapine DISINTEGR 10 MG TAB PO PRN (18:41)
[2017-06-09] MEDS: OLANZapine DISINTEGR 10 MG TAB PO SCH (19:41)
[2017-06-09] MEDS: OLANZapine DISINTEGR 5 MG TAB PO SCH (19:42)
--- NOTE | 2017-06-10 13:13 | SOAPPROG ---
SOAP Progress Note Assessment/Plan: Assessment: Per Dr. Worrell's note: 05/27/17 14:08 Bipolar D/o: Remains very ill. Will continue to offer Zyprexa, though would be OK with either Risperdal or Invega if pt preferred. Await hearing for COM. 05/30/17 20:47 Bipolar D/o: Worsened disorganization. Hope to see continued med compliance, but he clearly cannot give informed consent for ongoing tx. Hearing will be Th or Tue. CCM. 05/31/17 11:46 Bipolar D/o: Improved with Zyprexa. CCM. Will discontinue court process if patient regains decisional capacity and agrees to voluntary treatment. 06/01/17 15:27 Bipolar D/o? Some improvement with Zyprexa. I favor a diagosis of Schizoaffective D/o at this point. Will CCM. 06/02/17 14:26 Schizoaffective D/o: More obviously symptomatic today. Day #4 of Zyprexa. Will CCM. Will not titrate dose at this time due to his already rapid increase to 15mg. This would be unlikely to hasten any response and would be likely to cause side effects leading to non-compliance. Will cancel court hearing in re: COM to preserve therapeutic alliance. 06/03/17 13:18 Schizoaffective d/o: Remains quite ill. CCM. 06/06/17 14:17 Schizoaffective D/o: Minimal improvement. Will continue Zyprexa. He is at a therapeutic dose and needs time to fully respond. Only day #8. The presence of cannabis is a negative factor in his response. 06/07/17 11:13 Schizoaffective D/o: Improving. CCM with Zyprexa back to 15mg per pt request. 06/08/17 15:11 Schizoaffective D/o: SLow improvement. CCM. Subjective: Pt seen, discussed with staff. Reports feeling "out there." Remains aloof, though present in milieu. Moved down the mirza due to harassment by another patient. Required staff redirection due to rather dramatic behavior of doing yoga poses in the middle of morning goals group. He remains suspicious of my motivations, asking repeatedly why I want to keep him here for ninety days. I reassured him again that that is not our intent. He remains compliant with meds. Plan: 06/09/17 14:52 1. Patient feels "more comfortable" in new room. Still feels slightly paranoid that other patients are targeting him. 2 CCM - compliant with meds 3. Stipulated to [facility] 06/10/17 13:09 1. CCM - compliant with meds, slow improvement 2. Calmer, less hyperactive today Subjective: Met with patient, reviewed chart and d/w staff. Patient presents as calmer, less hyperactive today. However, he c/o MEADE and says he feels Zyprexa is making his head feel "weird." MD reminded him he can ask for Tylenol PRN to help with MEADE. Objective: Vital Signs Temp Pulse Resp BP Pulse Ox 35.4 C L 75 20 141/62 H 97 06/10/17 06:00 06/10/17 06:00 06/10/17 06:00 06/10/17 06:00 06/10/17 06:00 MSE: Mood: "OK" Affect: Less labile, still elevated TP: Racing thoughts, disorganized TC: Denies SI/HI, no hallucinations, but still has paranoid thoughts that peers are making sexual advances toward him Insight/Judgment: Poor - Time Spent With Patient Time Spent With Patient: 20" - Pending Discharge Pending Discharge Within 24 Hours: No Pending Discharge Within 48 Hours: No ICD10 Worksheet Patient Problems: Problems Problem Status Onset Schizophrenia Acute
[2017-06-10] MEDS: OLANZapine DISINTEGR 10 MG TAB PO SCH (18:43)
[2017-06-10] MEDS: OLANZapine DISINTEGR 5 MG TAB PO SCH (18:43)
[2017-06-11] MEDS: NICOTINE 7 MG/24 HR PATCH TD SCH (08:50)
--- NOTE | 2017-06-11 13:49 | SOAPPROG ---
SOAP Progress Note Assessment/Plan: Assessment: Per Dr. Worrell's note: 05/27/17 14:08 Bipolar D/o: Remains very ill. Will continue to offer Zyprexa, though would be OK with either Risperdal or Invega if pt preferred. Await hearing for COM. 05/30/17 20:47 Bipolar D/o: Worsened disorganization. Hope to see continued med compliance, but he clearly cannot give informed consent for ongoing tx. Hearing will be Th or Tue. CCM. 05/31/17 11:46 Bipolar D/o: Improved with Zyprexa. CCM. Will discontinue court process if patient regains decisional capacity and agrees to voluntary treatment. 06/01/17 15:27 Bipolar D/o? Some improvement with Zyprexa. I favor a diagosis of Schizoaffective D/o at this point. Will CCM. 06/02/17 14:26 Schizoaffective D/o: More obviously symptomatic today. Day #4 of Zyprexa. Will CCM. Will not titrate dose at this time due to his already rapid increase to 15mg. This would be unlikely to hasten any response and would be likely to cause side effects leading to non-compliance. Will cancel court hearing in re: COM to preserve therapeutic alliance. 06/03/17 13:18 Schizoaffective d/o: Remains quite ill. CCM. 06/06/17 14:17 Schizoaffective D/o: Minimal improvement. Will continue Zyprexa. He is at a therapeutic dose and needs time to fully respond. Only day #8. The presence of cannabis is a negative factor in his response. 06/07/17 11:13 Schizoaffective D/o: Improving. CCM with Zyprexa back to 15mg per pt request. 06/08/17 15:11 Schizoaffective D/o: SLow improvement. CCM. Subjective: Pt seen, discussed with staff. Reports feeling "out there." Remains aloof, though present in milieu. Moved down the mirza due to harassment by another patient. Required staff redirection due to rather dramatic behavior of doing yoga poses in the middle of morning goals group. He remains suspicious of my motivations, asking repeatedly why I want to keep him here for ninety days. I reassured him again that that is not our intent. He remains compliant with meds. Plan: 06/09/17 14:52 1. Patient feels "more comfortable" in new room. Still feels slightly paranoid that other patients are targeting him. 2 CCM - compliant with meds 3. Stipulated to COM 06/10/17 13:09 1. CCM - compliant with meds, slow improvement 2. Calmer, less hyperactive today 06/11/17 13:45t 1. Patient continues to have erratic and hyperactive behaviors. Last night, he was practicing "StowThat" moves and this AM he is drawing intently in journal. 2. Compliant with medications. Subjective: Met with patient, reviewed chart and d/w staff. Patient old staff today that he likes being in hospital b/c he enjoys "being around people." However, the last 2 days, patient was paranoid about peers and told MD he was "annoyed" by other patients. He left group early in order to write in his journal. Patient seems internally preoccupied and easily distracted. Objective: Vital Signs Temp Pulse Resp BP Pulse Ox 36.6 C 60 12 114/68 100 06/11/17 06:00 06/11/17 06:00 06/11/17 06:00 06/11/17 06:00 06/11/17 06:00 MSE: Mood: "Great" Affect: Intense, euthymic, labile TP: Disorganized, tangential TC: No SI/HI, less paranoid Insight/Judgment: Impaired - Time Spent With Patient Time Spent With Patient: 20" - Pending Discharge Pending Discharge Within 24 Hours: No Pending Discharge Within 48 Hours: No ICD10 Worksheet Patient Problems: Problems Problem Status Onset Schizophrenia Acute
[2017-06-11] MEDS: OLANZapine DISINTEGR 10 MG TAB PO SCH (21:20)
[2017-06-11] MEDS: OLANZapine DISINTEGR 5 MG TAB PO SCH (21:21)
[2017-06-12] MEDS: ACETAMINOPHEN 325 MG TAB PO PRN ×2 (07:37→22:29)
[2017-06-12] MEDS: NICOTINE 7 MG/24 HR PATCH TD SCH (08:57)
--- NOTE | 2017-06-12 13:09 | SOAPPROG ---
SOAP Progress Note Assessment/Plan: Assessment: Per Dr. Worrell's note: 05/27/17 14:08 Bipolar D/o: Remains very ill. Will continue to offer Zyprexa, though would be OK with either Risperdal or Invega if pt preferred. Await hearing for COM. 05/30/17 20:47 Bipolar D/o: Worsened disorganization. Hope to see continued med compliance, but he clearly cannot give informed consent for ongoing tx. Hearing will be Th or Tue. CCM. 05/31/17 11:46 Bipolar D/o: Improved with Zyprexa. CCM. Will discontinue court process if patient regains decisional capacity and agrees to voluntary treatment. 06/01/17 15:27 Bipolar D/o? Some improvement with Zyprexa. I favor a diagosis of Schizoaffective D/o at this point. Will CCM. 06/02/17 14:26 Schizoaffective D/o: More obviously symptomatic today. Day #4 of Zyprexa. Will CCM. Will not titrate dose at this time due to his already rapid increase to 15mg. This would be unlikely to hasten any response and would be likely to cause side effects leading to non-compliance. Will cancel court hearing in re: COM to preserve therapeutic alliance. 06/03/17 13:18 Schizoaffective d/o: Remains quite ill. CCM. 06/06/17 14:17 Schizoaffective D/o: Minimal improvement. Will continue Zyprexa. He is at a therapeutic dose and needs time to fully respond. Only day #8. The presence of cannabis is a negative factor in his response. 06/07/17 11:13 Schizoaffective D/o: Improving. CCM with Zyprexa back to 15mg per pt request. 06/08/17 15:11 Schizoaffective D/o: SLow improvement. CCM. Subjective: Pt seen, discussed with staff. Reports feeling "out there." Remains aloof, though present in milieu. Moved down the mirza due to harassment by another patient. Required staff redirection due to rather dramatic behavior of doing yoga poses in the middle of morning goals group. He remains suspicious of my motivations, asking repeatedly why I want to keep him here for ninety days. I reassured him again that that is not our intent. He remains compliant with meds. Plan: 06/09/17 14:52 1. Patient feels "more comfortable" in new room. Still feels slightly paranoid that other patients are targeting him. 2 CCM - compliant with meds 3. Stipulated to COM 06/10/17 13:09 1. CCM - compliant with meds, slow improvement 2. Calmer, less hyperactive today 06/11/17 13:45t 1. Patient continues to have erratic and hyperactive behaviors. Last night, he was practicing "[employer] moves and this AM he is drawing intently in journal. 2. Compliant with medications. 06/12/17 13:06 1. CCM - slow improvement 2. Sleeping well, > 7 hrs x 2 days Subjective: Met with patient, reviewed chart and d/w staff. Patient believes Zyprexa is "messing with my head." He c/o MEADE, but MD reminds patient that he drinks a lot of caffeinated coffee in AM, and may be having caffeine w/d HAs. Objective: Vital Signs Temp Pulse Resp BP Pulse Ox 36.6 C 85 16 80/50 L 95 06/12/17 07:02 06/12/17 07:02 06/12/17 07:02 06/12/17 07:02 06/12/17 07:02 MSE: Mood: "Good" Affect: Labile TP: Tangential TC: No SI/HI, denies hallucinations, still paranoid Insight/Judgment: Poor - Time Spent With Patient Time Spent With Patient: 20" - Pending Discharge Pending Discharge Within 24 Hours: No Pending Discharge Within 48 Hours: No ICD10 Worksheet Patient Problems: Problems Problem Status Onset Schizophrenia Acute
[2017-06-12] MEDS: OLANZapine DISINTEGR 10 MG TAB PO SCH (20:57)
[2017-06-12] MEDS: OLANZapine DISINTEGR 5 MG TAB PO SCH (20:58)
[2017-06-13] MEDS: NICOTINE 7 MG/24 HR PATCH TD SCH (08:21)
--- NOTE | 2017-06-13 14:53 | SOAPPROG ---
SOAP Progress Note Assessment/Plan: Assessment: Plan: 05/27/17 14:08 Bipolar D/o: Remains very ill. Will continue to offer Zyprexa, though would be OK with either Risperdal or Invega if pt preferred. Await hearing for COM. 05/30/17 20:47 Bipolar D/o: Worsened disorganization. Hope to see continued med compliance, but he clearly cannot give informed consent for ongoing tx. Hearing will be Th or Tue. CCM. 05/31/17 11:46 Bipolar D/o: Improved with Zyprexa. CCM. Will discontinue court process if patient regains decisional capacity and agrees to voluntary treatment. 06/01/17 15:27 Bipolar D/o? Some improvement with Zyprexa. I favor a diagosis of Schizoaffective D/o at this point. Will CCM. 06/02/17 14:26 Schizoaffective D/o: More obviously symptomatic today. Day #4 of Zyprexa. Will [facility]. Will not titrate dose at this time due to his already rapid increase to 15mg. This would be unlikely to hasten any response and would be likely to cause side effects leading to non-compliance. Will cancel court hearing in re: COM to preserve therapeutic alliance. 06/03/17 13:18 Schizoaffective d/o: Remains quite ill. CCM. 06/06/17 14:17 Schizoaffective D/o: Minimal improvement. Will continue Zyprexa. He is at a therapeutic dose and needs time to fully respond. Only day #8. The presence of cannabis is a negative factor in his response. 06/07/17 11:13 Schizoaffective D/o: Improving. CCM with Zyprexa back to 15mg per pt request. 06/08/17 15:11 Schizoaffective D/o: SLow improvement. [facility]. 06/13/17 14:55 Schizoaffective D/o: Continued improvement. Much better than five days ago when I last saw him. [facility]. Will Attempt to convene a family meeting for d/c planning. Subjective: Pt seen, discussed with staff. Chart and check-out from Dr. Ohara reviewed. He is sitting in his room journaling when I enter. He tells me to "sit down." He is generally pleasant, seemingly less paranoid. Engages appropriately. Discusses plan to stay in [place] and states his mother is going to buy him a house. He states, "I just really need a place of my own and a cat." I reflected to him that he failed similar circumstances, including the cat, on two different occasions within the last year. He acknowledges this and states, "I will need to figure out what the triggers were for my decompensation." [place] one issue. Recites the words from a song to the effect of noting he does not like crowds "or when they start partying and chanting in the streets." We then discussed future MJ use and he states he "doesn't want to go totally cold turkey." He states he wants "to put good CBD' s on my cereal." States, "I can't be healthy if I'm too clean." States later that he is still concerned that some workers at videoed him climbing a rock wall and told to stop. He states "this is why I wouldn't leave my hovel." Objective: Vital Signs Temp Pulse Resp BP Pulse Ox 36.3 C 74 16 128/82 H 98 06/13/17 06:00 06/13/17 06:00 06/13/17 06:00 06/13/17 06:00 06/13/17 06:00 MSE: Calm, coop. Affect is better modulated, approp., though remains odd, blunted overall. Speech is more spontaneous, less delay. Mood is "good." TP linear at times, tangential at others. Less blocking noted. TC reveals continued paranoia though no obvious RIS. Pt denies AH's. - Time Spent With Patient Time Spent With Patient: 25" ICD10 Worksheet Patient Problems: Problems Problem Status Onset Schizophrenia Acute
[2017-06-13] MEDS: OLANZapine DISINTEGR 5 MG TAB PO SCH (20:26)
[2017-06-13] MEDS: OLANZapine DISINTEGR 10 MG TAB PO SCH (20:27)
[2017-06-14] MEDS: LORazepam 0.5 MG TAB PO PRN (03:38)
[2017-06-14] MEDS: NICOTINE 7 MG/24 HR PATCH TD SCH (07:43)
--- NOTE | 2017-06-14 14:21 | SOAPPROG ---
SOAP Progress Note Assessment/Plan: Assessment: Plan: 05/27/17 14:08 Bipolar D/o: Remains very ill. Will continue to offer Zyprexa, though would be OK with either Risperdal or Invega if pt preferred. Await hearing for COM. 05/30/17 20:47 Bipolar D/o: Worsened disorganization. Hope to see continued med compliance, but he clearly cannot give informed consent for ongoing tx. Hearing will be Th or Tue. CCM. 05/31/17 11:46 Bipolar D/o: Improved with Zyprexa. CCM. Will discontinue court process if patient regains decisional capacity and agrees to voluntary treatment. 06/01/17 15:27 Bipolar D/o? Some improvement with Zyprexa. I favor a diagosis of Schizoaffective D/o at this point. Will CCM. 06/02/17 14:26 Schizoaffective D/o: More obviously symptomatic today. Day #4 of Zyprexa. Will CCM. Will not titrate dose at this time due to his already rapid increase to 15mg. This would be unlikely to hasten any response and would be likely to cause side effects leading to non-compliance. Will cancel court hearing in re: COM to preserve therapeutic alliance. 06/03/17 13:18 Schizoaffective d/o: Remains quite ill. CCM. 06/06/17 14:17 Schizoaffective D/o: Minimal improvement. Will continue Zyprexa. He is at a therapeutic dose and needs time to fully respond. Only day #8. The presence of cannabis is a negative factor in his response. 06/07/17 11:13 Schizoaffective D/o: Improving. CCM with Zyprexa back to 15mg per pt request. 06/08/17 15:11 Schizoaffective D/o: SLow improvement. CCM. 06/13/17 14:55 Schizoaffective D/o: Continued improvement. Much better than five days ago when I last saw him. CCM. Will Attempt to convene a family meeting for d/c planning. 06/14/17 14:22 Schizoaffective D/o: Continued gradual improvement. CCM. Subjective: Pt seen, discussed with staff. Reports feeling "pretty good." Continues to prefer staying in his room alone, but went to group today. Remains compliant with meds. No c/o's. Mother left me a message that she is having medical issues and cannot travel. Is willing to do a family meeting by phone. Objective: Vital Signs Temp Pulse Resp BP Pulse Ox 36.3 C 74 16 128/82 H 98 06/13/17 06:00 06/13/17 06:00 06/13/17 06:00 06/13/17 06:00 06/13/17 06:00 MSE: calm, coop. Affect is odd, with incongruent smile. Less irritable. Mood is "good." TP linear at times, tangential at others. TC reveals poor reality testing, grandiose and paranoid thoughts. Denies AH's. Denies SI/HI/. - Time Spent With Patient Time Spent With Patient: 15" ICD10 Worksheet Patient Problems: Problems Problem Status Onset Schizophrenia Acute
[2017-06-14] MEDS: OLANZapine DISINTEGR 5 MG TAB PO SCH (22:19)
[2017-06-14] MEDS: OLANZapine DISINTEGR 10 MG TAB PO SCH (22:19)
[2017-06-15] MEDS: NICOTINE 7 MG/24 HR PATCH TD SCH (08:59)
[2017-06-15] MEDS: MAG HYDROX/AL HYDROX/SIMETH 30 ML UDCUP PO PRN (09:05)
--- NOTE | 2017-06-15 14:20 | SOAPPROG ---
SOAP Progress Note Assessment/Plan: Assessment: Plan: 05/27/17 14:08 Bipolar D/o: Remains very ill. Will continue to offer Zyprexa, though would be OK with either Risperdal or Invega if pt preferred. Await hearing for COM. 05/30/17 20:47 Bipolar D/o: Worsened disorganization. Hope to see continued med compliance, but he clearly cannot give informed consent for ongoing tx. Hearing will be Th or Tue. CCM. 05/31/17 11:46 Bipolar D/o: Improved with Zyprexa. CCM. Will discontinue court process if patient regains decisional capacity and agrees to voluntary treatment. 06/01/17 15:27 Bipolar D/o? Some improvement with Zyprexa. I favor a diagosis of Schizoaffective D/o at this point. Will CCM. 06/02/17 14:26 Schizoaffective D/o: More obviously symptomatic today. Day #4 of Zyprexa. Will CCM. Will not titrate dose at this time due to his already rapid increase to 15mg. This would be unlikely to hasten any response and would be likely to cause side effects leading to non-compliance. Will cancel court hearing in re: COM to preserve therapeutic alliance. 06/03/17 13:18 Schizoaffective d/o: Remains quite ill. CCM. 06/06/17 14:17 Schizoaffective D/o: Minimal improvement. Will continue Zyprexa. He is at a therapeutic dose and needs time to fully respond. Only day #8. The presence of cannabis is a negative factor in his response. 06/07/17 11:13 Schizoaffective D/o: Improving. CCM with Zyprexa back to 15mg per pt request. 06/08/17 15:11 Schizoaffective D/o: SLow improvement. CCM. 06/13/17 14:55 Schizoaffective D/o: Continued improvement. Much better than five days ago when I last saw him. [facility]. Will Attempt to convene a family meeting for d/c planning. 06/14/17 14:22 Schizoaffective D/o: Continued gradual improvement. CCM. 06/15/17 14:20 Schizoaffective D/o: Much improved overall. CCM. Subjective: Pt seen, discussed with staff. Reports feeling "pretty good really." States he is looking forward to "getting my own apartment and an animal." He is much calmer, less intrusive, more appropriate in his interactions. Pleasant and non- confrontational with me today. Family meeting scheduled by phone for tomorrow. Objective: Vital Signs Temp Pulse Resp BP Pulse Ox 36.5 C 71 16 127/58 H 97 06/15/17 06:00 06/15/17 06:00 06/15/17 06:00 06/15/17 06:00 06/15/17 06:00 MSE: Calm, coop. Affect is more appropriate, more stable, though still somewhat elevated, odd. Mood is "good." TP linear for longer periods. Makes several unexpected, obtuse comments such as, "Oh, I forgot, I can make eye contact. What a weird dream." He then continues with an appropriate conversation. Denies SI/HI/. - Time Spent With Patient Time Spent With Patient: 25" ICD10 Worksheet Patient Problems: Problems Problem Status Onset Schizophrenia Acute
[2017-06-15] MEDS: OLANZapine DISINTEGR 10 MG TAB PO PRN (16:11)
[2017-06-15] MEDS: LORazepam 0.5 MG TAB PO PRN (19:21)
[2017-06-15] MEDS: OLANZapine DISINTEGR 5 MG TAB PO SCH (19:22)
[2017-06-15] MEDS: OLANZapine DISINTEGR 10 MG TAB PO SCH (19:23)
[2017-06-16] MEDS: OLANZapine DISINTEGR 10 MG TAB PO PRN ×2 (07:09→16:32)
[2017-06-16] MEDS: MAG HYDROX/AL HYDROX/SIMETH 30 ML UDCUP PO PRN (10:03)
[2017-06-16] MEDS: NICOTINE 7 MG/24 HR PATCH TD SCH (10:12)
--- NOTE | 2017-06-16 14:22 | SOAPPROG ---
SOAP Progress Note Assessment/Plan: Assessment: Plan: 05/27/17 14:08 Bipolar D/o: Remains very ill. Will continue to offer Zyprexa, though would be OK with either Risperdal or Invega if pt preferred. Await hearing for COM. 05/30/17 20:47 Bipolar D/o: Worsened disorganization. Hope to see continued med compliance, but he clearly cannot give informed consent for ongoing tx. Hearing will be Th or Tue. [facility]. 05/31/17 11:46 Bipolar D/o: Improved with Zyprexa. CCM. Will discontinue court process if patient regains decisional capacity and agrees to voluntary treatment. 06/01/17 15:27 Bipolar D/o? Some improvement with Zyprexa. I favor a diagosis of Schizoaffective D/o at this point. Will CCM. 06/02/17 14:26 Schizoaffective D/o: More obviously symptomatic today. Day #4 of Zyprexa. Will [facility]. Will not titrate dose at this time due to his already rapid increase to 15mg. This would be unlikely to hasten any response and would be likely to cause side effects leading to non-compliance. Will cancel court hearing in re: COM to preserve therapeutic alliance. 06/03/17 13:18 Schizoaffective d/o: Remains quite ill. [facility]. 06/06/17 14:17 Schizoaffective D/o: Minimal improvement. Will continue Zyprexa. He is at a therapeutic dose and needs time to fully respond. Only day #8. The presence of cannabis is a negative factor in his response. 06/07/17 11:13 Schizoaffective D/o: Improving. [facility] with Zyprexa back to 15mg per pt request. 06/08/17 15:11 Schizoaffective D/o: SLow improvement. [facility]. 06/13/17 14:55 Schizoaffective D/o: Continued improvement. Much better than five days ago when I last saw him. [facility]. Will Attempt to convene a family meeting for d/c planning. 06/14/17 14:22 Schizoaffective D/o: Continued gradual improvement. CCM. 06/15/17 14:20 Schizoaffective D/o: Much improved overall. CCM. 06/16/17 14:24 Schizoaffective D/o: Some regression in stressful situation with ROSARIO. Will CCM , continue d/c planning. Subjective: Pt seen, discussed with staff. Reports feeling "just great." Had family meeting with parents over the phone. Pt struggled to remain appropriate. Reverted to adolescent role, arguing and yelling at parents, especially mother. Told her she was "mean" and began crying for no real reason and then blamed it on her. Unable to meaningfully participate in d/c planning as he could only respond argumentatively to any suggestion from parents. Remains compliant with meds, states repeatedly that he wants to continue Zyprexa after d/c. Objective: Vital Signs Temp Pulse Resp BP Pulse Ox 36.3 C 68 16 118/69 97 06/16/17 06:00 06/16/17 06:00 06/16/17 06:00 06/16/17 06:00 06/16/17 06:00 MSE: Well-groomed, anxious. Affect is expansive, irritable at times, tearful at others. Mood is "messed up." TP tangential, struggles to make any meaningful points. Uses many long words for seeming effect but without clear meaning. - Time Spent With Patient Time Spent With Patient: 35" ICD10 Worksheet Patient Problems: Problems Problem Status Onset Schizophrenia Acute
[2017-06-16] MEDS: LORazepam 0.5 MG TAB PO PRN (18:37)
[2017-06-17] MEDS: OLANZapine DISINTEGR 5 MG TAB PO SCH ×2 (03:54→19:51)
[2017-06-17] MEDS: OLANZapine DISINTEGR 10 MG TAB PO SCH ×2 (03:55→19:50)
[2017-06-17] MEDS: LORazepam 0.5 MG TAB PO PRN ×2 (04:42→16:02)
[2017-06-17] MEDS: NICOTINE 7 MG/24 HR PATCH TD SCH (11:32)
[2017-06-17] MEDS: OLANZapine DISINTEGR 10 MG TAB PO PRN (14:42)
--- NOTE | 2017-06-17 16:30 | SOAPPROG ---
SOAP Progress Note Assessment/Plan: Assessment: Plan: 05/27/17 14:08 Bipolar D/o: Remains very ill. Will continue to offer Zyprexa, though would be OK with either Risperdal or Invega if pt preferred. Await hearing for COM. 05/30/17 20:47 Bipolar D/o: Worsened disorganization. Hope to see continued med compliance, but he clearly cannot give informed consent for ongoing tx. Hearing will be Th or Tue. [facility]. 05/31/17 11:46 Bipolar D/o: Improved with Zyprexa. CCM. Will discontinue court process if patient regains decisional capacity and agrees to voluntary treatment. 06/01/17 15:27 Bipolar D/o? Some improvement with Zyprexa. I favor a diagosis of Schizoaffective D/o at this point. Will CCM. 06/02/17 14:26 Schizoaffective D/o: More obviously symptomatic today. Day #4 of Zyprexa. Will [facility]. Will not titrate dose at this time due to his already rapid increase to 15mg. This would be unlikely to hasten any response and would be likely to cause side effects leading to non-compliance. Will cancel court hearing in re: COM to preserve therapeutic alliance. 06/03/17 13:18 Schizoaffective d/o: Remains quite ill. [facility]. 06/06/17 14:17 Schizoaffective D/o: Minimal improvement. Will continue Zyprexa. He is at a therapeutic dose and needs time to fully respond. Only day #8. The presence of cannabis is a negative factor in his response. 06/07/17 11:13 Schizoaffective D/o: Improving. [facility] with Zyprexa back to 15mg per pt request. 06/08/17 15:11 Schizoaffective D/o: SLow improvement. [facility]. 06/13/17 14:55 Schizoaffective D/o: Continued improvement. Much better than five days ago when I last saw him. [facility]. Will Attempt to convene a family meeting for d/c planning. 06/14/17 14:22 Schizoaffective D/o: Continued gradual improvement. CCM. 06/15/17 14:20 Schizoaffective D/o: Much improved overall. CCM. 06/16/17 14:24 Schizoaffective D/o: Some regression in stressful situation with ROSARIO. Will CCM , continue d/c planning. 06/17/17 16:30 Schizoaffective D/o: Continued slow improvement. [facility]. Subjective: Pt seen, discussed with staff. Out in the milieu this afternoon, stretching or doing yoga in group again. Remains rather peripheral to the group, struggling to meaningfully communicate. Objective: Vital Signs Temp Pulse Resp BP Pulse Ox 36.3 C 65 16 112/76 96 06/17/17 05:29 06/17/17 05:29 06/17/17 05:29 06/17/17 05:29 06/17/17 05:29 - Time Spent With Patient Time Spent With Patient: 15" ICD10 Worksheet Patient Problems: Problems Problem Status Onset Schizophrenia Acute
[2017-06-18] MEDS: ACETAMINOPHEN 325 MG TAB PO PRN (04:46)
[2017-06-18] MEDS: NICOTINE 7 MG/24 HR PATCH TD SCH (09:02)
--- NOTE | 2017-06-18 16:18 | SOAPPROG ---
[place] Progress Note Assessment/Plan: Assessment: Per Dr. Worrell's note: 06/13/17 14:55 Schizoaffective D/o: Continued improvement. Much better than five days ago when I last saw him. [facility]. Will Attempt to convene a family meeting for d/c planning. 06/14/17 14:22 Schizoaffective D/o: Continued gradual improvement. [facility]. 06/15/17 14:20 Schizoaffective D/o: Much improved overall. [facility]. 06/16/17 14:24 Schizoaffective D/o: Some regression in stressful situation with ROSARIO. Will [facility] , continue d/c planning. 06/17/17 16:30 Schizoaffective D/o: Continued slow improvement. [facility]. Plan: 06/18/17 16:14 1. Continue on current drug regimen 2. No significant change, slow improvement Subjective: Met with patient, reviewed chart and d/w staff. Patient is requesting to be given Vitamin D3 supplement as well as "some [place]-3's." Patient states he has taken these in past. MD suggested starting by first checking his Vit D level with a blood test. Patient agreed. He is more hyperactive and distracted today. He is pacing halls and laughing/talking to himself as he walks. Objective: Vital Signs Temp Pulse Resp BP Pulse Ox 36.3 C 80 14 126/74 H 97 06/18/17 06:00 06/18/17 06:00 06/18/17 06:00 06/18/17 06:00 06/18/17 06:00 MSE: Mood: "Frustrated" and "Angry" about "still being here" Affect: Labile, irritable TP: Disorganized, tangential TC: Paranoid, denies AH/VH, but clearly RIS Insight/Judgment: Poor - Time Spent With Patient Time Spent With Patient: 20" - Pending Discharge Pending Discharge Within 24 Hours: No Pending Discharge Within 48 Hours: No ICD10 Worksheet Patient Problems: Problems Problem Status Onset Schizophrenia Acute
[2017-06-18] MEDS: OLANZapine DISINTEGR 10 MG TAB PO SCH (19:56)
[2017-06-19] MEDS: NICOTINE 7 MG/24 HR PATCH TD SCH (09:09)
--- NOTE | 2017-06-19 13:54 | SOAPPROG ---
SOAP Progress Note Assessment/Plan: Assessment: Per Dr. Worrell's note: 06/13/17 14:55 Schizoaffective D/o: Continued improvement. Much better than five days ago when I last saw him. [facility]. Will Attempt to convene a family meeting for d/c planning. 06/14/17 14:22 Schizoaffective D/o: Continued gradual improvement. [facility]. 06/15/17 14:20 Schizoaffective D/o: Much improved overall. [facility]. 06/16/17 14:24 Schizoaffective D/o: Some regression in stressful situation with ROSARIO. Will [facility] , continue d/c planning. 06/17/17 16:30 Schizoaffective D/o: Continued slow improvement. [facility]. Plan: 06/18/17 16:14 1. Continue on current drug regimen 2. No significant change, slow improvement 06/19/17 13:51 1. DC nicotine patch per patient request 2. Patient is calmer and less hyperactive today. He denies any problems with increased dose of Zyprexa. 3. Will check Vitamin D level in AM. Patient request to take Vitamin D3 and fish oil, but advised we would need to check his blood level first. Subjective: Met with patient, reviewed chart and d/w staff. Patient slept 6 hrs last night. He presents calmer and less hyperactive today. He has somewhat easier time focusing, he isn't as distractible or fidgety as yesterday. Able to have a congenial conversation with peer about a book he is reading that MD overheard. Yesterday he was laughing inappropriately and talking to himself while pacing the halls. None of that behavior today. Objective: Vital Signs Temp Pulse Resp BP Pulse Ox 36.4 C 74 15 117/63 95 06/19/17 06:00 06/19/17 06:00 06/19/17 06:00 06/19/17 06:00 06/19/17 06:00 MSE: Mood: "I'm OK" Affect: Less labile, not as emotional TP: Tangential, disorganized TC: No SI/HI, no hallucinations Insight/Judgment: Poor - Time Spent With Patient Time Spent With Patient: 20" - Pending Discharge Pending Discharge Within 24 Hours: No Pending Discharge Within 48 Hours: No ICD10 Worksheet Patient Problems: Problems Problem Status Onset Schizophrenia Acute
[2017-06-19] MEDS: LORazepam 0.5 MG TAB PO PRN ×3 (16:46→20:55)
[2017-06-19] MEDS: OLANZapine DISINTEGR 10 MG TAB PO SCH (18:31)
[2017-06-20] MEDS: LORazepam 0.5 MG TAB PO PRN (08:45)
--- NOTE | 2017-06-20 15:19 | SOAPPROG ---
SOAP Progress Note Assessment/Plan: Assessment: Plan: 05/27/17 14:08 Bipolar D/o: Remains very ill. Will continue to offer Zyprexa, though would be OK with either Risperdal or Invega if pt preferred. Await hearing for COM. 05/30/17 20:47 Bipolar D/o: Worsened disorganization. Hope to see continued med compliance, but he clearly cannot give informed consent for ongoing tx. Hearing will be Th or Tue. [facility]. 05/31/17 11:46 Bipolar D/o: Improved with Zyprexa. CCM. Will discontinue court process if patient regains decisional capacity and agrees to voluntary treatment. 06/01/17 15:27 Bipolar D/o? Some improvement with Zyprexa. I favor a diagosis of Schizoaffective D/o at this point. Will CCM. 06/02/17 14:26 Schizoaffective D/o: More obviously symptomatic today. Day #4 of Zyprexa. Will [facility]. Will not titrate dose at this time due to his already rapid increase to 15mg. This would be unlikely to hasten any response and would be likely to cause side effects leading to non-compliance. Will cancel court hearing in re: COM to preserve therapeutic alliance. 06/03/17 13:18 Schizoaffective d/o: Remains quite ill. [facility]. 06/06/17 14:17 Schizoaffective D/o: Minimal improvement. Will continue Zyprexa. He is at a therapeutic dose and needs time to fully respond. Only day #8. The presence of cannabis is a negative factor in his response. 06/07/17 11:13 Schizoaffective D/o: Improving. [facility] with Zyprexa back to 15mg per pt request. 06/08/17 15:11 Schizoaffective D/o: SLow improvement. [facility]. 06/13/17 14:55 Schizoaffective D/o: Continued improvement. Much better than five days ago when I last saw him. [facility]. Will Attempt to convene a family meeting for d/c planning. 06/14/17 14:22 Schizoaffective D/o: Continued gradual improvement. CCM. 06/15/17 14:20 Schizoaffective D/o: Much improved overall. CCM. 06/16/17 14:24 Schizoaffective D/o: Some regression in stressful situation with ROSARIO. Will [facility] , continue d/c planning. 06/17/17 16:30 Schizoaffective D/o: Continued slow improvement. [facility]. 06/20/17 15:18 Schizoaffective D/o: Doing well overall. I would agree with step down at this point if available. [facility]. Subjective: Pt seen, discussed with staff, chart reviewed. He is pleasant and interactive with me today. WE was uneventful. Remains compliant with meds and therapies. Discussed d/c plan and he is agreeable to going to [facility] for step-down. Objective: Vital Signs Temp Pulse Resp BP Pulse Ox 36.6 C 74 16 107/51 L 100 06/20/17 06:00 06/20/17 06:00 06/20/17 06:00 06/20/17 06:00 06/20/17 06:00 Laboratory Results 06/20/17 06:00 - Time Spent With Patient Time Spent With Patient: 25" ICD10 Worksheet Patient Problems: Problems Problem Status Onset Schizophrenia Acute
[2017-06-20] MEDS: OLANZapine DISINTEGR 10 MG TAB PO SCH (21:34)
[2017-06-21 06:41] VITALS: BP 111/55; PULSE 68; RESP 14; TEMP 97.4; O2SAT 98
--- NOTE | 2017-06-21 12:49 | BDS ---
[f rep st] BEHAVIORAL HEALTH DISCHARGE SUMMARY REASON FOR ADMISSION: Patient is a 27-year-old male with a previous history of bipolar man ia and psychosis. It was unclear apparently if this was combined in the form of psychotic ruddy, or schizoaffective disorder, or related to his chronic cannabis use. Regardless, he was deteriorating o miriam the 8-10 months prior to admission, becoming noncompliant with his medications, and increasing hi s use of marijuana. He had become disorganized, pressured, and irrational. He was hallucinating, he aring voices, and had begun acting bizarrely. He became unable to communicate with others, and his r oommates eventually called the police because they were afraid of him, and felt like he could care fo r himself. He was taken to the emergency department on an M1 hold, and then admitted to the [facility] inpatient unit on an M1 hold for further evaluation. A full description of the events preceding admission can be found in his admission history, dated 8. ADMITTING DIAGNOSES: Schizoaffective disorder, bipolar type, most recent episode manic, pending home lessness, chronic illness, recurrent illness, medication noncompliance, lack of supports, conflict wi primary support group, cannabis use disorder, moderate to severe. ADMITTING PHYSICAL EXAMINATION: Performed by Dr. Luke Mendoza, revealed no acute physical finding s. ADMITTING LABORATORY: CBC was normal. Serum chemistries were normal. Liver function was normal on repeat, on 06/20/2017. Vitamin D was slightly low at 25.4. TSH was slightly low at 0.347. Urine dr ug screen on admission was positive for marijuana. HOSPITAL COURSE: Patient was admitted to [facility] inpatient unit on an M1 hold. He was agitated, paranoid, uncooperative, disorganized and struggled significantly with communication. Attempts to discuss his illness or treatment with him were largely unsuccessful, and we treated his a pparent psychotic ruddy empirically with Zyprexa. He tolerated this well and was initially hesitant to take it, but then voluntarily took it. Ultimately, he was placed on a short-term certification an d I petitioned for court-ordered medications, which he ultimately stipulated to. This was somewhat i rrelevant as he remained compliant with oral medicines throughout his stay. The Zyprexa was titrated to 20 mg at h.s., and he tolerated this well with no side effects. Patient's hospital course was slow, although, uncomplicated. His mood gradually normalized. His beh aviors normalized and his psychosis resolved. His auditory loose hallucinations completely resolved, and his paranoid delusions also completely resolved. A primary delusion he had was that the town of [place] was conspiring against him and wanted him to leave. On the day of discharge, he was churefugio allen, talking with me about it, stating "I can not believe I thought the whole town of [place] was against me." Th e patient was seen with his family on numerous occasions and his parents were very active in his shiv tment and discharge planning. At the end of his stay, he was agreeable to going to [facility] as a step-down, and then [facility] [place]. CONDITION ON DISCHARGE: Stable. Patient's affect was euthymic, stable and appropriate. He was slee ping more than 6 hours per night and was compliant with all medications. He was forward thinking and stated that he desired to be stable. Continuing on his medications and avoiding continued cannabis use. He was willing to go to [facility] on a voluntary basis, and was excited to leave the [facility]. He did state, however, that "I actually like it here and have grown fond of all the staff." DISCHARGE MEDICATIONS: Zyprexa 20 mg p.o. q.h.s. DISCHARGE DIAGNOSES: Schizoaffective disorder, bipolar type, chronic with acute exacerbation, chroni c illness, recurrent illness, cannabis use disorder, severe, homelessness, some degree of family conf lict. LEGAL COURSE: The patient was placed on a short-term certification at the expiration of his M1 hold. The short-term certification was discontinued at the time of his discharge. The patient was given discharge instructions, including his followup appointment with dates and times , at the time of discharge. The patient's attitude was positive for thinking at the time of discharge. There were no studies or laboratory tests pending at the time of his discharge. /[id number]/MODL
[2017-06-21] MEDS: OLANZapine DISINTEGR 10 MG TAB PO PRN (12:57)
== END 2017-06-21 14:30 | disposition home or self-care (01) | DRG 885 ==
LOC: BBEH 22:13
PROVIDERS: ADMIT Psychiatry & Neurology Psychiatry; ATTEND Psychiatry & Neurology Psychiatry
DX: F25.0 Schizoaffective disorder, bipolar type (principal); T43.506A Underdosing of unspecified antipsychotics and neuroleptics, initial encounter; Z91.128 Patient's intentional underdosing of medication regimen for other reason; R00.1 Bradycardia, unspecified; F12.90 Cannabis use, unspecified, uncomplicated; Z59.0 Homelessness; F17.210 Nicotine dependence, cigarettes, uncomplicated
CPT/HCPCS: 80305; G0480

== ENCOUNTER 2018-04-17 21:19 | Emergency (ER) | payer OTHER, MEDICAID ==
--- NOTE | 2018-04-17 22:02 | EDPHY ---
H & P Stated Complaint: M1, Hearing voices, altered, SI Time Seen by Provider: 04/17/18 21:50 HPI/ROS: Chief Complaint: Suicidal, hearing voices HPI: 28-year-old male with a history of bipolar disorder possible schizoaffective disorder is presenting on a mental health hold from [facility] for medical clearance. Patient states that he has been off his medications for several months. He is hearing voices which are telling him to harm himself. He was seen at [facility] and placed on a mental health hold. Denies any other ingestions. Does not currently have a plan. No recent falls or trauma. Patient has been calm and cooperative. Denies other drugs or alcohol. Patient is also complaining of rectal pain, has a history of hemorrhoids. States that this been acting up for the last couple days. He has a been applying icy Hot with no relief. ROS: 10 systems were reviewed and were negative except those elements noted in the HPI. PMH: Bipolar disorder Social History: No smoking, no alcohol, no recreational drug use Family History: non-contributory Physical Exam: Gen: Awake, Alert, No Distress, blunted affect HEENT: Nose: no rhinorrhea Eyes: PERRLA, EOMI Mouth: Moist mucosa Neck: Supple, no JVD Chest: nontender, lungs clear to auscultation Heart: S1, S2 normal, no murmur Abd: Soft, non-tender, no guarding Rectal: Patient has in for aim to external hemorrhoids. Do not appear thrombosed at this time. Back: no CVA tenderness, no midline tenderness Ext: no edema, non-tender Skin: no rash Neuro: CN II-XII intact, Sensation grossly intact, Strength 5/5 in bilateral upper and lower extremities - Personal History Current Tetanus Diphtheria and Acellular Pertussis (TDAP): No Tetanus Vaccine Date: Within the last seven years - Medical/Surgical History Hx Asthma: No Hx Chronic Respiratory Disease: No Hx Diabetes: No Hx Cardiac Disease: No Hx Renal Disease: No Hx Cirrhosis: No Hx Alcoholism: No Hx HIV/AIDS: No Hx Splenectomy or Spleen Trauma: No Other PMH: schizophrenia, bipolar - Social History Smoking Status: Current every day smoker Constitutional: Initial Vital Signs Temperature (C) 36.8 C 04/17/18 21:25 Heart Rate 55 L 04/17/18 21:25 Respiratory Rate 18 01/07/19 21:25 Blood Pressure 125/76 H 04/17/18 21:25 O2 Sat (%) 97 04/17/18 21:25 O2 Delivery Mode Room Air Allergies/Adverse Reactions: No Known Allergies Allergy (Verified 04/17/18 21:37) Home Medications: Medication Instructions Recorded OLANZapine DISINTEGR [ZyPREXA 20 mg PO HS tab 06/21/17 ZYDIS (*)] [place] Carbonate 04/17/18 Hydrocortisone Acetate [Anucort-Hc] 25 mg RC BID #30 supp.rect 04/18/18 Medical Decision Making ED Course/Re-evaluation: Plan will be for medical clearance. Patient does have inflamed hemorrhoids. No thrombosis at this time. Will order topical medications. Patient has been accepted to [facility] by Dr. Payne. I have completed the EMT A LA. - Data Points Laboratory Results: Laboratory Results 04/17/18 21:30 04/17/18 21:30 04/17/18 04/17/18 04/17/18 22:30 21:30 21:30 WBC 6.68 10^3/uL 10^3/uL (3.80-9.50) RBC 3.97 10^6/uL L 10^6/uL (4.40-6.38) Hgb 12.2 g/dL L g/dL (13.7-17.5) Hct 35.7 % L % (40.0-51.0) MCV 89.9 fL fL (81.5-99.8) MCH 30.7 pg pg (27.9-34.1) MCHC 34.2 g/dL g/dL (32.4-36.7) RDW 12.5 % % (11.5-15.2) Plt Count 190 10^3/uL 10^3/uL (150-400) MPV 11.0 fL fL (8.7-11.7) Neut % (Auto) 57.8 % % (39.3-74.2) Lymph % (Auto) 33.5 % % (15.0-45.0) Glynn % (Auto) 7.3 % % (4.5-13.0) Eos % (Auto) 0.9 % % (0.6-7.6) Baso % (Auto) 0.4 % % (0.3-1.7) Nucleat RBC Rel Count 0.0 % % (0.0-0.2) Absolute Neuts (auto) 3.85 10^3/uL 10^3/uL (1.70-6.50) Absolute Lymphs (auto) 2.24 10^3/uL 10^3/uL (1.00-3.00) Absolute Monos (auto) 0.49 10^3/uL 10^3/uL (0.30-0.80) Absolute Eos (auto) 0.06 10^3/uL 10^3/uL (0.03-0.40) Absolute Basos (auto) 0.03 10^3/uL 10^3/uL (0.02-0.10) Absolute Nucleated RBC 0.00 10^3/uL 10^3/uL (0-0.01) Immature Gran % 0.1 % % (0.0-1.1) Immature Gran # 0.01 10^3/uL 10^3/uL (0.00-0.10) Sodium 135 mEq/L mEq/L (135-145) Potassium 3.6 mEq/L mEq/L (3.5-5.2) Chloride 107 mEq/L mEq/L (97-110) Carbon Dioxide 22 mEq/l mEq/l (22-31) Anion Gap 6 mEq/L mEq/L (6-14) BUN 19 mg/dL mg/dL (7-23) Creatinine 0.7 mg/dL mg/dL (0.7-1.3) Estimated GFR > 60 Glucose 119 mg/dL H mg/dL (70-100) Calcium 9.0 mg/dL mg/dL (8.5-10.4) Urine Opiates Screen NEGATIVE (NEGATIVE) Urine Barbiturates NEGATIVE (NEGATIVE) Ur Phencyclidine Scrn NEGATIVE (NEGATIVE) Ur Amphetamine Screen NEGATIVE (NEGATIVE) U Benzodiazepines Scrn NEGATIVE (NEGATIVE) Urine Cocaine Screen NEGATIVE (NEGATIVE) U Marijuana (THC) Screen NEGATIVE (NEGATIVE) Ethyl Alcohol < 10 mg/dL mg/dL (0-10) Medications Given: Hydrocortisone (Hydrocortisone 2.5%) 1 kitty TP BID CATA Stop: 10/15/18 00:59 Last Admin: 04/18/18 01:07 Dose: 1 each Departure - Departure Disposition: Other Psych, Not Je Clinical Impression: Hemorrhoid, Suicidal ideation Condition: Fair Instructions: Hemorrhoids (ED) Referrals: NONE *PRIMARY CARE P,. [Primary Care Provider] - As per Instructions Prescriptions: Hydrocortisone Acetate [Anucort-Hc] 25 mg RC BID #30 supp.rect
[2018-04-17 22:03] LABS: PLATELET COUNT 190 10^3/uL (150-400)
[2018-04-18] MEDS ORDERED: HYDROCORTISONE 2.5% 30 GM CRTUBE TP SCH (01:00)
[2018-04-18 05:03] VITALS: BP 116/78
--- NOTE | 2018-04-18 05:30 | ASMTTCLDSP ---
T[facility] Discharge Disposition Disposition: Answers: Transfer Disposition Notes: Notes: Per ED nurse, KARL Alfredo secured placement of pt at [facility] under Dr. Irene Payne. Was patient given the Answers: Not applicable Inpatient Behavioral Health Prohibited Belongings List while in the ED? Type of Hold: Answers: M1/72-hour Hold Hold initiated by: Answers: Police For Transfers, Accepting [facility] Facility: For Transfers, Accepting Irene Payne MD Psychiatrist: Date Signed: 04/18/2018 05:29 AM Electronically Signed By:Reece Crane
== END 2018-04-18 05:03 ==
DX: K64.9 Unspecified hemorrhoids (principal); R45.851 Suicidal ideations; F31.9 Bipolar disorder, unspecified
CPT/HCPCS: 80305; G0480